=== PATIENT | female | born 1995 | race American Indian/Alaskan Native ===

== ENCOUNTER 2019-04-01 20:06 | Emergency (ER) | payer SELFPAY ==
[2019-04-01 20:28] VITALS: BP 121/80
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
== END 2019-04-01 21:00 | disposition left against medical advice (07) ==
LOC: ED 20:06
DX: Z04.1 Encounter for examination and observation following transport accident (principal); V89.2XXA Person injured in unspecified motor-vehicle accident, traffic, initial encounter; Y93.89 Activity, other specified; Y92.410 Unspecified street and highway as the place of occurrence of the external cause; Y99.8 Other external cause status
CPT/HCPCS: 99282

== ENCOUNTER 2020-09-10 18:11 | Outpatient (CLI) | payer MEDICAID ==
[2020-09-10 18:42] VITALS: BP 119/63
[2020-09-10] MEDS ORDERED: LACTATED RINGERS 1,000 ML IV ONE (18:43)
[2020-09-10 19:27] LABS: Bacteria,Urine 1+ /HPF (Negative); Bilirubin,Urine NEG (Negative); Blood,Urine NEG (Negative); Color,Urine Yellow (Yellow); Mucus,Urine FEW /HPF; Protein,Urine <15 mg/dL mg/dL (Negative); Urobilinogen,Urine < 2.0 mg/dL (<2.0)
--- NOTE | 2020-09-10 20:41 | Ultrasound Report ---
ULTRASOUND OBSTETRIC LIMITED ULTRASOUND BIOPHYSICAL PROFILE INDICATION / CLINICAL INFORMATION: Shortness of breath, fatigue, abdominal pain, dizziness. 35 weeks . COMPARISON: None available. FINDINGS: BREATHING MOVEMENT = 2 GROSS BODY MOVEMENT = 2 TONE = 2 QUALITATIVE AMNIOTIC FLUID VOLUME = 2 TOTAL BIOPHYSICAL SCORE = 8/8 AMNIOTIC FLUID INDEX (cm) = 12.4 PRESENTATION: Cephalic. HEART RATE (beats per minute): 143 ADDITIONAL FINDINGS: presentation is cephalic. The placenta is located anteriorly. IMPRESSION: 1. Biophysical Score = 8/8 2. Additional findings as above. Signer Name: Gabe Yip MD Signed: 09/10/2020 8:37 PM Workstation Name: [id number]
== END 2020-09-10 20:10 | disposition home or self-care (01) ==
LOC: TRG 18:11 → APU 18:13 → TRG 20:10
DX: O26.853 Spotting complicating pregnancy, third trimester (principal); Z3A.35 35 weeks gestation of pregnancy
CPT/HCPCS: 76815; 76819; 81001

== ENCOUNTER 2021-01-29 21:27 | Emergency (ER) | payer MEDICAID ==
[2021-01-29] MEDS ORDERED: TETANUS,DIPH,PERTUSS(ACELL) VACCINE 0.5 ML SYRINGE IM ONE (22:44)
[2021-01-29] MEDS ORDERED: HYDROcodone/ACETAMINOPHEN 5-325 MG TAB PO ONE (22:44)
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
[2021-01-30 02:10] VITALS: BP 131/84
== END 2021-01-30 02:22 | disposition home or self-care (01) ==
LOC: ED 21:27
DX: S01.81XA Laceration without foreign body of other part of head, initial encounter (principal); S16.1XXA Strain of muscle, fascia and tendon at neck level, initial encounter; V87.7XXA Person injured in collision between other specified motor vehicles (traffic), initial encounter; Y93.89 Activity, other specified; Y92.89 Other specified places as the place of occurrence of the external cause; Y99.8 Other external cause status
CPT/HCPCS: 70450; 71046; 72125; 90471; 90715; 99284